=== PATIENT | female | born 1960 | race Caucasian/White ===

== ENCOUNTER 2025-04-30 21:32 | Emergency (ER) | payer OTHER ==
[~2025-04-30] VITALS: Ht 162.6 cm; Wt 65.9 kg
[2025-05-01] MEDS ORDERED: ZOLO50TA PO (01:44)
[2025-05-01] MEDS ORDERED: PRED20TA PO (01:44)
[2025-05-01] MEDS ORDERED: OMEP-404 PO (01:44)
[2025-05-01] MEDS ORDERED: MEST60TA PO (01:44)
[2025-05-01] MEDS ORDERED: TRAZ1TAB11 PO (01:44)
[2025-05-01] MEDS ORDERED: HYDR-3713 PO (01:52)
[2025-05-01 02:00] VITALS: BP 158/80; TEMP 98.1; O2SAT 96
== END 2025-05-01 02:01 | disposition home or self-care (01) ==
LOC: M ED 21:32
DX: S42.254A Nondisplaced fracture of greater tuberosity of right humerus, initial encounter for closed fracture (principal); W01.198A Fall on same level from slipping, tripping and stumbling with subsequent striking against other object, initial encounter; Y92.009 Unspecified place in unspecified non-institutional (private) residence as the place of occurrence of the external cause; Y93.89 Activity, other specified; Y99.9 Unspecified external cause status; G70.00 Myasthenia gravis without (acute) exacerbation; F17.200 Nicotine dependence, unspecified, uncomplicated